=== PATIENT | male | born 1960 | race Two or more races ===

== ENCOUNTER 2016-06-28 10:24 | Inpatient (IN) | payer MEDICAID ==
[~2016-06-28] VITALS: Ht 172.7 cm; Wt 89.4 kg
[~2016-06-28 10:24] MED LIST: AMLO1CAP10 PO; ASPI81TA2 PO; ATOR80TA PO; CARV3.122 PO; CLOP75TA2 PO; FURO20TA4 PO; GEMF600T3 PO; GLIM4TAB2 PO; INSU3INS6 SUBCUT; [UNRECOGNIZED DRUG - CODE] PO
--- NOTE | 2016-06-28 10:24 | NUR ---
COUGH, CONGESTION, BODY ACHES AND CHILLS. NAD NOTED. RR EVEN AND UNLABORED. PT AAO X4, AMB WITH STEADY GAIT. VSS. PENDING MD [place].
[2016-06-28 10:54] LABS: BASOPHILS # (AUTO) 0.1 /CMM (0.0-0.2); BASOPHILS % (AUTO) 1.1 % (0.0-2.0); EOSINOPHILS # (AUTO) 0.2 /CMM (0.0-0.7); HEMATOCRIT 35 % (39-51); HEMOGLOBIN 12.2 g/dL (13.5-17.5); LYMPHOCYTES # (AUTO) 1.7 /CMM (0.8-4.8); LYMPHOCYTES % (AUTO) 21.9 % (20.0-44.0); MEAN CORPUSCULAR HEMOGLOBIN 31 PG (26.0-33.0); MEAN CORPUSCULAR HGB CONC 35 g/dl (31.0-36.0); MEAN CORPUSCULAR VOLUME 89 fL (80-96); MONOCYTES # (AUTO) 0.6 /CMM (0.1-1.30); MONOCYTES % (AUTO) 8.2 % (2.0-12.0); NEUTROPHILS % (AUTO) 65.8 % (43.0-81.0); PLATELET COUNT (AUTO) 453 /CMM (150-450); RDW COEFFICIENT OF VARIATION 12.3 (11.5-15.0); RED BLOOD CELL COUNT(AUTO) 3.99 MIL/uL (4.5-6.0); WHITE BLOOD COUNT (AUTO) 7.6 K/uL (4.3-11.0)
[2016-06-28] MEDS ORDERED: ONDANSETRON HCL/PF 4 MG/2 ML VIAL ONE (10:58)
[2016-06-28] MEDS ORDERED: NITROGLYCERIN PACKET 1 GM PACKET ONE (10:58)
[2016-06-28] MEDS ORDERED: MORPHINE SULFATE INJ 4 MG/ML DISP.SYRIN ONE (10:58)
[2016-06-28] MEDS ORDERED: MORPHINE SULFATE INJ 2 MG/ML DISP.SYRIN IV ONE (11:00)
[2016-06-28] MEDS ORDERED: NITROGLYCERIN PACKET 1 GM PACKET TD ONE (11:00)
[2016-06-28] MEDS ORDERED: ONDANSETRON HCL/PF 4 MG/2 ML VIAL IVP ONE (11:00)
[2016-06-28 11:11] LABS: TROPONIN I 0.034 ng/mL (0.00-0.056)
[2016-06-28 11:12] LABS: CALCIUM, SERUM 8.8 mg/dL (8.5-10.1); CREATININE 1.2 mg/dL (0.6-1.3); POTASSIUM 3.8 mmol/L (3.5-5.1)
--- NOTE | 2016-06-28 11:17 | NUR ---
CALLED NURSING SUP. FOR TELE BED
[2016-06-28 11:22] LABS: INR 0.96 (0.87-1.13); PROTHROMBIN TIME 10.3 SECS (9.5-12.7)
--- NOTE | 2016-06-28 11:45 | NUR ---
SERINA PAGED, DR.SAM Juarez CLOTH BOLT BANDER
[2016-06-28] MEDS ORDERED: INSU100V3 SQ (11:47)
--- NOTE | 2016-06-28 12:06 | NUR ---
REPORT GIVEN TO PHILLIP VERGARA FOR FIDELIA
--- NOTE | 2016-06-28 12:09 | NUR ---
SERINA PAGED, PLYCOR OPERATOR
--- NOTE | 2016-06-28 13:26 | NUR ---
IS CONSULTANT ADMISSION Received patient from E.R. Department via [facility] under the care of Dr. Rosen with admitting diagnosis of: Chest Pain, Patient is alert and oriented x4, denies pain or discomfort at this time, no sob noted, patient's skin is intact, needs attended and met, placed on telemonitor which shows Sinus Rhythm 76, call light placed within reach, will continue to monitor.
[2016-06-28] MEDS ORDERED: MAG HYDROX/AL HYDROX/SIMETH 30 ML UDC PO PRN (13:30)
[2016-06-28] MEDS ORDERED: ACETAMINOPHEN 325 MG TABLET PO PRN (13:30)
[2016-06-28] MEDS ORDERED: ONDANSETRON HCL/PF 4 MG/2 ML VIAL IVP PRN (13:30)
[2016-06-28] MEDS ORDERED: ZOLPIDEM TARTRATE 5 MG TABLET PO PRN (13:30)
[2016-06-28] MEDS ORDERED: Z GUARD REMEDY 2 OZ OINT TP PRN (13:30)
[2016-06-28] MEDS ORDERED: HYDROCODONE/APAP 5/325MG 1 EACH TABLET PO PRN (13:30)
[2016-06-28] MEDS ORDERED: MAGNESIUM HYDROXIDE 30 ML UDC PO PRN (13:30)
[2016-06-28 14:00] VITALS: BP 135/75
--- NOTE | 2016-06-28 14:10 | NUR ---
INTERACTIVE PROJECT MANAGER NOTES Patient in bed, fsbs checked with result of 332, informed Dr. Rosen and received new orders for sliding scale insulin. Patient is in no distress at this time. Will continue to monitor.
[2016-06-28] MEDS ORDERED: *INSULIN REGULAR(HUMULIN R)HUM 100 UNIT/ML VIAL SQ PRN (14:30)
[2016-06-28] MEDS ORDERED: DEXTROSE 50%-WATER 50 ML DISP.SYRIN IV PRN (14:30)
[2016-06-28] MEDS: BLOOD SUGAR DIAGNOSTIC 1 EACH STRIP VI SCH ×3 (15:00→21:35)
[2016-06-28] MEDS: INSULIN REGULAR, HUMAN 100 UNIT/ML 3 ML VIAL SQ PRN (15:03)
[2016-06-28 16:00] VITALS: BP 125/65
[2016-06-28] MEDS: CARVEDILOL 3.125 MG TABLET PO SCH (17:20)
[2016-06-28] MEDS: GEMFIBROZIL 600 MG TABLET PO SCH (17:20)
[2016-06-28] MEDS: INSULIN REGULAR, HUMAN 100 UNIT/ML 3 ML VIAL SQ SCH (17:28)
--- NOTE | 2016-06-28 17:28 | NUR ---
TRANSIT COACH OPERATOR NOTES PATIENT SEEN AND EXAMINED BY DR. SCHUMACHER, CLARIFIED INSULIN ADMINISTRATION FOR DINNER, PER MD, GIVE 30 UNITS OF INSULIN FIRST THEN RECHECK IN AN HOUR TO SEE IF PATIENT NEEDS MORE COVERAGE FROM MODERATE SLIDING SCALE.
--- NOTE | 2016-06-28 18:13 | NUR ---
LONG TERM CARE PHLEBOTOMIST NOTES PATIENT ALREADY HAD DINNER, RECHECK BS WITH RESULT OF 356, PATIENT REFUSED ANY INSULIN AT THIS TIME, PATIENT IS AWARE NEXT SCHEDULE ACCUCHECK IS AT BEDTIME, HE PREFERS TO RECHECK SUGAR THEN. PATIENT IS IN STABLE CONDITION, NO CHANGE IN LOC, FAMILY AT BEDSIDE, NO COMPLAINT OF CHEST PAIN, VITAL SIGNS STABLE, CALL LIGHT WITHIN REACH, WILL ENDORSE TO PRESSURE CONTROLLER FOR FIDELIA.
[2016-06-28] MEDS ORDERED: NICOTINE PATCH (21MG) 21 MG PATCH.TD24 TD SCH (19:30)
--- NOTE | 2016-06-28 19:35 | NUR ---
RN OPENING NOTES RECEIVED REPORT FROM URSULA ROWLAND. FOUND Pt AWAKE, SITTING IN CHAIR. VISITING AT BEDSIDE. NO S/S OF ACUTE DISTRESS OR SOB NOTED. Pt IS A/OX4. NO C/O PAIN AT THIS TIME. IV ACCESS ON RFA #18, SL. SAFETY MEASURES IN PLACE. BED LOW, LOCKED, HOB ELEVATED, SIDE RAILS UP, CALL LIGHT AND BEDSIDE TABLE WITHIN REACH. WILL CONTINUE TO MONITOR Pt THROUGHOUT THE NIGHT FOR SAFETY.
--- NOTE | 2016-06-28 21:15 | NUR ---
RN NOTES Pt C/O OF FEELING HIS BLOOD SUGAR LOW. CHECKED BG, IT WAS 52. GAVE OJ, APPLE SAUCE, AND SANDWICH TO EAT. WILL RECHECK BG IN 15MIN.
--- NOTE | 2016-06-28 21:30 | NUR ---
RN NOTES RECHECKED BLOOD SUGAR. BG AT 83. DID NOT ADMINISTER HIS PM AMARYL 4MG DUE TO HIS LOW BG. WILL RECHECK BG.
[2016-06-28] MEDS: GLIMEPIRIDE 4 MG TABLET PO SCH (21:38)
[2016-06-28] MEDS: NICOTINE PATCH (21MG) 21 MG PATCH.TD24 TD SCH (21:52)
[2016-06-28 22:00] VITALS: BP 135/72
--- NOTE | 2016-06-28 22:00 | NUR ---
RN NOTES RECHECKED BLOOD SUGAR. BG 149. Pt REFUSED INSULIN AT THIS TIME, AFRAID THAT HIS BG WILL DROP TOO LOW AGAIN IN THE AM. WILL CONTINUE TO MONITOR Pt's BG LEVELS.
--- NOTE | 2016-06-29 06:35 | NUR ---
RN NOTES ACCUCHECK BG 308. ADMINISTERED 12UN OF INSULIN PER SLIDING SCALE.
[2016-06-29] MEDS: BLOOD SUGAR DIAGNOSTIC 1 EACH STRIP VI SCH ×4 (06:40→21:30)
[2016-06-29] MEDS: INSULIN REGULAR, HUMAN 100 UNIT/ML 3 ML VIAL SQ PRN ×3 (06:42→16:48)
[2016-06-29 06:50] LABS: BASOPHILS % (AUTO) 0.5 % (0.0-2.0); EOSINOPHILS # (AUTO) 0.3 /CMM (0.0-0.7); EOSINOPHILS % (AUTO) 3.5 % (0.0-6.0); HEMATOCRIT 35 % (39-51); HEMOGLOBIN 12.1 g/dL (13.5-17.5); LYMPHOCYTES # (AUTO) 2.5 /CMM (0.8-4.8); LYMPHOCYTES % (AUTO) 30.7 % (20.0-44.0); MEAN CORPUSCULAR HEMOGLOBIN 31 PG (26.0-33.0); MEAN CORPUSCULAR HGB CONC 35 g/dl (31.0-36.0); MEAN CORPUSCULAR VOLUME 89 fL (80-96); MONOCYTES # (AUTO) 0.6 /CMM (0.1-1.30); MONOCYTES % (AUTO) 7.5 % (2.0-12.0); NEUTROPHILS # (AUTO) 4.6 /CMM (1.8-8.9); NEUTROPHILS % (AUTO) 57.8 % (43.0-81.0); PLATELET COUNT (AUTO) 462 /CMM (150-450); RDW COEFFICIENT OF VARIATION 12.9 (11.5-15.0); RED BLOOD CELL COUNT(AUTO) 3.92 MIL/uL (4.5-6.0)
--- NOTE | 2016-06-29 06:55 | NUR ---
RN CLOSING NOTES NO SIGNIFICANT CHANGES DURING THE NIGHT. NO S/S OF ACUTE DISTRESS OR SOB NOTED. SAFETY MEASURES IN PLACE. ALL NEEDS MET AND ATTENDED TO. TELE READING SR 77. WILL ENDORSE TO DAYSHIFT RN FOR Pt's FIDELIA.
[2016-06-29 07:05] LABS: CALCIUM, SERUM 8.3 mg/dL (8.5-10.1); CREATININE 1.2 mg/dL (0.6-1.3); MAGNESIUM 1.8 mg/dL (1.8-2.4); PHOSPHORUS 3.6 mg/dL (2.5-4.9); POTASSIUM 4.2 mmol/L (3.5-5.1)
--- NOTE | 2016-06-29 07:10 | NUR ---
SALES SERVICE TECHNICIAN INITIAL NOTES REPORT RECEIVED AT THE BEDSIDE. PATIENT IS SLEEPING. NO SOB OR DISTRESS NOTED AT THIS TIME. PATIENT DOES NOT APPEAR TO BE IN PAIN, NO FACIAL GRIMACE NOTED. HEART RATE SR AT 72. BED IN A LOW POSITION, CALL LIGHT WITHIN PATIENT REACH. WILL CONTINUE TO MONITOR.
[2016-06-29 08:00] VITALS: BP 134/69
[2016-06-29] MEDS: BENAZEPRIL HCL 20 MG TABLET PO SCH (08:13)
[2016-06-29] MEDS: CARVEDILOL 3.125 MG TABLET PO SCH ×3 (08:13→16:47)
[2016-06-29] MEDS: CLOPIDOGREL BISULFATE 75 MG TABLET PO SCH (08:14)
[2016-06-29] MEDS: AMLODIPINE BESYLATE 10 MG TABLET PO SCH (08:14)
[2016-06-29] MEDS: ASPIRIN 81 MG TAB.CHEW PO SCH (08:14)
[2016-06-29] MEDS: GEMFIBROZIL 600 MG TABLET PO SCH ×2 (08:14→16:47)
[2016-06-29] MEDS: INSULIN REGULAR, HUMAN 100 UNIT/ML 3 ML VIAL SQ SCH ×2 (08:15→16:48)
[2016-06-29] MEDS ORDERED: INSULIN DETEMIR 100 UNIT/ML CARTRIDGE SQ SCH ×2 (09:00→09:46)
[2016-06-29 09:56] LABS: TROPONIN I 0.036 ng/mL (0.00-0.056)
[2016-06-29 18:00] VITALS: BP 134/69
--- NOTE | 2016-06-29 19:18 | NUR ---
ARM REST BUILDER CLOSING NOTES NO SIGNIFICANT CHANGES IN PATIENT CONDITION THROUGHOUT THE SHIFT. NO SOB OR DISTRESS NOTED AT THIS TIME. PATIENT DENIES PAIN. HEART RATE SR AT 79. BED IN A LOW POSITION, CALL LIGHT WITHIN PATIENT REACH. WILL ENDORSE FOR FIDELIA.
--- NOTE | 2016-06-29 19:47 | NUR ---
RN OPENING NOTES RECEIVED REPORT FROM KASHIF RNCANDI. FOUND Pt AWAKE, RESTING IN BED. VISITING AT BEDSIDE. NO S/S OF ACUTE DISTRESS OR SOB NOTED. Pt IS A/OX4, VERBAL, ABLE TO MAKE NEEDS KNOWN. NO C/O PAIN AT THIS TIME. IV ACCESS ON RFA #18, SL. WILL BE NPO AT MD FOR STRESS TEST IN THE AM. SAFETY MEASURES IN PLACE. BED LOW, LOCKED, HOB ELEVATED, SIDE RAILS UP, CALL LIGHT AND BEDSIDE TABLE WITHIN REACH. WILL CONTINUE TO MONITOR Pt THROUGHOUT THE NIGHT FOR SAFETY.
[2016-06-29 20:00] VITALS: BP 148/88
[2016-06-29] MEDS: NICOTINE PATCH (21MG) 21 MG PATCH.TD24 TD SCH (20:58)
[2016-06-29] MEDS ORDERED: NICOTINE PATCH (14MG) 14 MG PATCH.TD24 TD SCH (21:00)
[2016-06-29] MEDS: GLIMEPIRIDE 4 MG TABLET PO SCH (21:01)
--- NOTE | 2016-06-29 21:28 | NUR ---
ACCMICHAEL BG 267. ONLY ADMINISTERED LEVEMIR 25UN. NO ADDITIONAL INSULIN COVERAGE GIVEN. WILL BE NPO AT OR FOR STRESS TEST IN AM. Addendum: 06/29/16 at 2130 by BEBO BELTRAN RN SNACKS PROVIDED AT BEDSIDE. INFORMED Pt HE MUST EAT HIS SNACKS BEFORE 12AM.
[2016-06-29 22:00] VITALS: BP 148/88
[2016-06-29] MEDS ORDERED: ATORVASTATIN 40 MG TABLET PO SCH (22:00)
[2016-06-30] VITALS: BP 137/77
[2016-06-30 04:00] VITALS: BP 133/65
[2016-06-30] MEDS: BLOOD SUGAR DIAGNOSTIC 1 EACH STRIP VI SCH ×2 (06:35→09:34)
--- NOTE | 2016-06-30 06:39 | NUR ---
RN NOTES BLOOD SUGAR 235. NO INSULIN COVERAGE GIVEN DUE TO NPO STATUS FOR STRESS TEST IN THE AM. WILL INFORM DAYSHIFT RN TO HOLD BREAKFAST TRAY SO THAT Pt CAN EAT AFTER HE RETURNS FROM HIS TEST.
--- NOTE | 2016-06-30 06:55 | NUR ---
RN CLOSING NOTES NO SIGNIFICANT CHANGES DURING THE NIGHT. NO S/S OF ACUTE DISTRESS OR SOB NOTED. SAFETY MEASURES IN PLACE. ALL NEEDS MET AND ATTENDED TO. Pt HAS BEEN NPO [place]CE [place] FOR STRESS TEST IN THE AM. WILL ENDORSE TO DAYSHIFT RN FOR Pt's FIDELIA.
--- NOTE | 2016-06-30 07:00 | NUR ---
TELE/RN AM NOTES RECEIVED PATIENT IN BED, AWAKE, ALERT, WITHOUT SOB, NO PAIN, RESTING COMFORTABLY. IV LINE RFA INTACT, PATENT. REMAINS NPO FOR UPCOMING CARDIAC STRESS TEST. NEEDS MET, WITH CALL LIGHT WITHIN EASY REACH, WILL CONTINUE TO MONITOR ACCORDINGLY
[2016-06-30 07:01] VITALS: BP 144/77
[2016-06-30 08:00] VITALS: BP 131/80
[2016-06-30] MEDS ORDERED: REGADENOSON 0.4 MG/5 ML DISP.SYRIN IVP ONE (08:00)
[2016-06-30] MEDS: INSULIN REGULAR, HUMAN 100 UNIT/ML 3 ML VIAL SQ SCH (09:38)
--- NOTE | 2016-06-30 09:40 | NUR ---
MS/RN NOTES PATIENT IS BACK FROM CARDIAC STRESS TEST, IN STABLE CONDITION, NO SOB, NO CHEST PAIN, PART ONE IS DONE, AWAITING FOR SECOND PART. BLOOD SUGAR CHECKED PRIOR BREAKFAST, 205, PATIENT REFUSED 30 UNIT REGULAR INSULIN, INSTEAD ASKED FOR 20 UNITS REGULAR INSULIN, MD AWARE. WILL CONTINUE TO MONITOR ACCORDINGLY
[2016-06-30] MEDS: GEMFIBROZIL 600 MG TABLET PO SCH (09:53)
[2016-06-30] MEDS: ASPIRIN 81 MG TAB.CHEW PO SCH (09:53)
[2016-06-30] MEDS: CLOPIDOGREL BISULFATE 75 MG TABLET PO SCH (09:53)
[2016-06-30] MEDS: CARVEDILOL 3.125 MG TABLET PO SCH (09:53)
[2016-06-30] MEDS: AMLODIPINE BESYLATE 10 MG TABLET PO SCH (09:54)
[2016-06-30] MEDS: BENAZEPRIL HCL 20 MG TABLET PO SCH (09:54)
[2016-06-30] MEDS: INSULIN REGULAR, HUMAN 100 UNIT/ML 3 ML VIAL SQ PRN (12:16)
[2016-06-30 16:00] VITALS: BP 126/79
--- NOTE | 2016-06-30 16:45 | NUR ---
MS/RN NOTES DISCHARGED PATIENT HOME WITH SPOUSE, IN STABLE CONDITION, WALKING, WITHOUT SOB, NO DISTRESS, DENIES CHEST PAIN, VITAL SIGNS B/P - 129/86, P-89, R-18, T-97.8, 02-99 % RA DISCHARGE CARE INSTRUCTIONS GIVEN, VERBALIZED UNDERSTANDING. ENCOURAGED TO F/U WITH PRIMARY PHYSICIAN WITHIN A WEEK. LEFT WITH DISCHARGE PAPERS AND ALL HIS BELONGINGS AND VALUABLES.
== END 2016-06-30 16:45 | disposition home or self-care (01) | DRG 198 ==
LOC: ER 10:25 → TELE 12:50 → MED 06-30 08:53
PROVIDERS: ADMIT Family Medicine; ATTEND Family Medicine
DX: I25.119 Atherosclerotic heart disease of native coronary artery with unspecified angina pectoris (principal); E10.65 Type 1 diabetes mellitus with hyperglycemia; I10 Essential (primary) hypertension; E78.5 Hyperlipidemia, unspecified; F17.210 Nicotine dependence, cigarettes, uncomplicated; D64.9 Anemia, unspecified; Z95.1 Presence of aortocoronary bypass graft; Z79.4 Long term (current) use of insulin; Z79.84 Long term (current) use of oral hypoglycemic drugs; Z83.3 Family history of diabetes mellitus; Z71.6 Tobacco abuse counseling
CPT/HCPCS: 36415; 71010-TC; 80048-TC; 80061-TC; 82728-TC; 82962-TC; 83540-TC; 83735-TC; 83880; 84100-TC; 84484-TC; 85025-TC; 85730-TC; 87081-TC; 93307-TC; A4606; A9502; J1815; J2270; J2405; J2785; Z7610

== ENCOUNTER 2023-08-14 00:05 | Inpatient (IN) | payer MEDICAID, OTHER ==
[~2023-08-14] VITALS: Ht 172.7 cm; Wt 69.9 kg
[~2023-08-14 00:05] MED LIST changes: -AMLO1CAP10 PO; +AMLO1CAP93 PO; +ASPI-1169 PO; -ASPI81TA2 PO; +CLOP75TA15 PO; -CLOP75TA2 PO; -FURO20TA4 PO; -GEMF600T3 PO; +GEMF600T90 PO; -GLIM4TAB2 PO; +GLIM4TAB37 PO; +INSU100V3 SQ; -[UNRECOGNIZED DRUG - CODE] PO
[2023-08-14] MEDS ORDERED: HYDROCODONE/APAP 5/325MG TABLET ONE (00:36)
[2023-08-14] MEDS: HYDROCODONE/APAP 5/325MG TABLET PO ONE (00:45)
[2023-08-14] MEDS ORDERED: MORPHINE SULFATE INJ 4 MG/ML DISP.SYRIN ONE (00:52)
[2023-08-14] MEDS ORDERED: ONDANSETRON HCL/PF 4 MG/2 ML VIAL ONE (00:52)
[2023-08-14] MEDS: ONDANSETRON HCL/PF 4 MG/2 ML VIAL IV ONE (01:00)
[2023-08-14] MEDS: MORPHINE SULFATE INJ 2 MG/ML DISP.SYRIN IV ONE (01:02)
[2023-08-14 01:17] LABS: BASOPHILS % (AUTO) 0.4 % (0.0-2.0); EOSINOPHILS # (AUTO) 0.1 K/uL (0.0-0.7); EOSINOPHILS % (AUTO) 1.8 % (0.0-6.0); HEMATOCRIT 48 % (39-51); HEMOGLOBIN 16.6 g/dL (13.5-17.5); LYMPHOCYTES # (AUTO) 1.2 K/uL (0.8-4.8); LYMPHOCYTES % (AUTO) 16.6 % (20.0-44.0); MEAN CORPUSCULAR HEMOGLOBIN 32 PG (26.0-33.0); MEAN CORPUSCULAR HGB CONC 35 g/dl (31.0-36.0); MEAN CORPUSCULAR VOLUME 91 fL (80-96); MONOCYTES # (AUTO) 0.3 K/uL (0.1-1.30); MONOCYTES % (AUTO) 4.3 % (2.0-12.0); NEUTROPHILS # (AUTO) 5.4 K/uL (1.8-8.9); NEUTROPHILS % (AUTO) 76.9 % (43.0-81.0); PLATELET COUNT (AUTO) 156 K/uL (150-450); RED BLOOD CELL COUNT(AUTO) 5.26 MIL/uL (4.5-6.0); RED CELL DISTRIBUTION WIDTH 14.3 % (11.5-15.0)
[2023-08-14 01:27] LABS: INR 1.05 (0.91-1.10); PARTIAL THROMBOPLASTIN TIME 30.6 SEC (24.3-34.3); PROTHROMBIN TIME 11.1 SECS (9.2-11.1)
[2023-08-14 01:30] LABS: CALCIUM, SERUM 7.6 mg/dL (8.5-10.1); CREATININE 1.7 mg/dL (0.6-1.3); POTASSIUM 3.5 mmol/L (3.5-5.1)
[2023-08-14] MEDS ORDERED: MAGNESIUM HYDROXIDE 30 ML UDC PO PRN (02:00)
[2023-08-14] MEDS ORDERED: ONDANSETRON HCL/PF 4 MG/2 ML VIAL IVP PRN (02:00)
[2023-08-14] MEDS ORDERED: DEXTROSE 50%-WATER 50 ML DISP.SYRIN IV PRN (02:00)
[2023-08-14] MEDS ORDERED: MAG HYDROX/AL HYDROX/SIMETH 30 ML UDC PO PRN (02:00)
[2023-08-14 03:00] VITALS: BP 141/69; TEMP 97.5; O2SAT 96
[2023-08-14 03:43] VITALS: BP 141/69; TEMP 97.5; O2SAT 96
[2023-08-14] MEDS: BLOOD SUGAR DIAGNOSTIC 1 EACH STRIP IN SCH (05:34)
[2023-08-14] MEDS: INSULIN REGULAR, HUMAN 100 UNIT/ML 3 ML VIAL SQ PRN (05:41)
[2023-08-14] MEDS: MORPHINE SULFATE INJ 4 MG/ML DISP.SYRIN IV PRN (05:48)
[2023-08-14] MEDS ORDERED: CARV6.252 PO (07:58)
[2023-08-14] MEDS ORDERED: SACU1TAB PO (07:58)
[2023-08-14] MEDS ORDERED: FURO80TA3 PO (07:58)
[2023-08-14] MEDS ORDERED: ERTU15TA PO (07:58)
[2023-08-14] MEDS ORDERED: ROSU40TA23 PO (07:58)
[2023-08-14 08:00] VITALS: BP 151/88; TEMP 98.1; O2SAT 95
[2023-08-14] MEDS: AMLODIPINE BESYLATE 10 MG TABLET PO SCH (09:31)
[2023-08-14] MEDS: GEMFIBROZIL 600 MG TABLET PO SCH (09:31)
[2023-08-14] MEDS: PANTOPRAZOLE 40 MG VIAL IV SCH (09:31)
[2023-08-14] MEDS: BENAZEPRIL HCL 20 MG TABLET PO SCH (09:32)
[2023-08-14] MEDS: CARVEDILOL 6.25 MG TABLET PO SCH (09:33)
[2023-08-14] MEDS ORDERED: CARVEDILOL 6.25 MG TABLET PO SCH (11:30)
[2023-08-14] MEDS: SACUBITRIL/VALSARTAN 1 EACH TABLET PO SCH (12:00)
[2023-08-14] MEDS ORDERED: SACUBITRIL/VALSARTAN 1 EACH TABLET PO SCH (12:00)
[2023-08-14] MEDS ORDERED: ATORVASTATIN 40 MG TABLET PO SCH (12:00)
[2023-08-14] MEDS: FUROSEMIDE 20 MG/2 ML VIAL IV ONE (12:58)
[2023-08-14] MEDS: EMPAGLIFLOZIN 25 MG TABLET PO SCH (13:00)
[2023-08-14 16:00] VITALS: BP 113/61; TEMP 98.6; O2SAT 95
[2023-08-14 18:39] LABS: APPEARANCE,URINE CLEAR (CLEAR); BILIRUBIN,URINE NEGATIVE (NEGATIVE); BLOOD, URINE NEGATIVE Ery/uL (NEGATIVE); COLOR,URINE YELLOW (YELLOW); KETONES,URINE TRACE mg/dL (NEGATIVE); LEUKOCYTE ESTERASE ,URINE NEGATIVE (NEGATIVE); NITRITE, URINE NEGATIVE (NEGATIVE); PH,URINE 5.5 (5.0-8.0); PROTEIN,URINE 2+ mg/dl (NEGATIVE); UGLUCOSE 3+ mg/dL (NEGATIVE); UROBILINOGEN,URINE 0.2 EU/dL (0.2)
[2023-08-14 18:47] LABS: ADD URINE CULTURE NO; BACTERIA,URINE RARE /HPF (None Seen); MUCUS,URINE Few /LPF (None Seen); RBC,URINE 0-2 /HPF (0-2); SQUAMOUS EPITHELIAL CELL,UR 0-2 /HPF (None Seen); WBC,URINE 0-2 /HPF (0-3)
[2023-08-14 18:54] LABS: EOSINOPHIL,URINE None Seen
[2023-08-14 18:59] LABS: CREATININE, URINE 89.4 MG/DL (30.0-125.0); URINE TOTAL PROTEIN 90.1 mg/dL (0-11.9)
[2023-08-14 20:00] VITALS: BP 106/57; TEMP 98.4; O2SAT 96
[2023-08-14] MEDS: ATORVASTATIN 40 MG TABLET PO SCH (21:22)
[2023-08-14 23:40] VITALS: O2SAT 96
[2023-08-15] VITALS (10 sets, daily range): BP systolic 106–141; BP diastolic 57–88; TEMP 97.5–99; O2SAT 94–99
[2023-08-15 06:44] LABS: BASOPHILS % (AUTO) 0.5 % (0.0-2.0); EOSINOPHILS # (AUTO) 0.2 K/uL (0.0-0.7); EOSINOPHILS % (AUTO) 2.4 % (0.0-6.0); HEMATOCRIT 41 % (39-51); HEMOGLOBIN 14.4 g/dL (13.5-17.5); LYMPHOCYTES # (AUTO) 0.9 K/uL (0.8-4.8); LYMPHOCYTES % (AUTO) 12.9 % (20.0-44.0); MEAN CORPUSCULAR HEMOGLOBIN 32 PG (26.0-33.0); MEAN CORPUSCULAR HGB CONC 35 g/dl (31.0-36.0); MEAN CORPUSCULAR VOLUME 91 fL (80-96); MONOCYTES # (AUTO) 0.4 K/uL (0.1-1.30); MONOCYTES % (AUTO) 6.7 % (2.0-12.0); NEUTROPHILS # (AUTO) 5.1 K/uL (1.8-8.9); NEUTROPHILS % (AUTO) 77.5 % (43.0-81.0); PLATELET COUNT (AUTO) 126 K/uL (150-450); WHITE BLOOD COUNT (AUTO) 6.6 K/uL (4.3-11.0)
[2023-08-15 07:02] LABS: ALBUMIN 3.1 g/dL (3.4-5.0); BILIRUBIN,TOTAL 1.6 mg/dL (0.2-1.0); CALCIUM, SERUM 8.9 mg/dL (8.5-10.1); CREATININE 1.8 mg/dL (0.6-1.3); MAGNESIUM 1.9 mg/dL (1.8-2.4); PHOSPHORUS 4.4 mg/dL (2.5-4.9); TOTAL PROTEIN, SERUM 6.3 g/dL (6.4-8.2)
[2023-08-15] MEDS ORDERED: ANESTHESIA TRAY IN PYXIS 1 EA TRAY MC ONE (07:46)
[2023-08-15] MEDS ORDERED: BUPIVACAINE 0.25% 75 MG/30 ML VIAL ONE (07:47)
[2023-08-15] MEDS ORDERED: POLYMYXIN B SULFATE 0 UNITS ONE (07:47)
[2023-08-15] MEDS ORDERED: FENTANYL PF 250MCG/5ML AMPUL ONE (07:59)
[2023-08-15] MEDS ORDERED: ROCURONIUM BROMIDE 50 MG/5 ML ONE (08:01)
[2023-08-15 09:41] LABS: HEMOGLOBIN 14.7 g/dL (13.5-17.5)
[2023-08-15] MEDS ORDERED: FENTANYL PF 100MCG/2ML AMPUL ONE (09:42)
[2023-08-15] MEDS: ACETAMINOPHEN 325 MG TABLET PO PRN (12:18)
[2023-08-15] MEDS: ANCEF 1 GM/50 ML D5W IV SCH (16:35)
[2023-08-16 05:42] VITALS: O2SAT 94
[2023-08-16 07:16] LABS: BASOPHILS % (AUTO) 0.6 % (0.0-2.0); EOSINOPHILS # (AUTO) 0.2 K/uL (0.0-0.7); EOSINOPHILS % (AUTO) 2.9 % (0.0-6.0); HEMATOCRIT 39 % (39-51); HEMOGLOBIN 13.7 g/dL (13.5-17.5); LYMPHOCYTES # (AUTO) 0.7 K/uL (0.8-4.8); LYMPHOCYTES % (AUTO) 11.8 % (20.0-44.0); MEAN CORPUSCULAR HEMOGLOBIN 32 PG (26.0-33.0); MEAN CORPUSCULAR HGB CONC 35 g/dl (31.0-36.0); MEAN CORPUSCULAR VOLUME 91 fL (80-96); MONOCYTES # (AUTO) 0.4 K/uL (0.1-1.30); MONOCYTES % (AUTO) 7.1 % (2.0-12.0); NEUTROPHILS # (AUTO) 4.8 K/uL (1.8-8.9); NEUTROPHILS % (AUTO) 77.6 % (43.0-81.0); PLATELET COUNT (AUTO) 120 K/uL (150-450); RED BLOOD CELL COUNT(AUTO) 4.32 MIL/uL (4.5-6.0); RED CELL DISTRIBUTION WIDTH 13.9 % (11.5-15.0); WHITE BLOOD COUNT (AUTO) 6.2 K/uL (4.3-11.0)
[2023-08-16 08:05] VITALS: BP 114/60; TEMP 98.4; O2SAT 97
[2023-08-16 08:11] LABS: PTH, INTACT 34 pg/mL (15-65)
[2023-08-16 08:17] LABS: CALCIUM, SERUM 8.2 mg/dL (8.5-10.1); CREATININE 2.1 mg/dL (0.6-1.3); MAGNESIUM 2.1 mg/dL (1.8-2.4); PHOSPHORUS 3.9 mg/dL (2.5-4.9); POTASSIUM 3.6 mmol/L (3.5-5.1)
[2023-08-16] MEDS: PANTOPRAZOLE 40 MG TABLET.DR PO SCH (08:43)
[2023-08-16 13:08] LABS: *SPE A/G RATIO 1.1 (0.7-1.7); *SPE ALBUMIN 3.1 g/dL (2.9-4.4); *SPE ALPHA-1-GLOBULIN 0.3 g/dL (0.0-0.4); *SPE ALPHA-2-GLOBULIN 0.6 g/dL (0.4-1.0); *SPE GLOBULIN, TOTAL 2.7 g/dL (2.2-3.9); *SPE M-SPIKE Not Observed g/dL (Not Observed); *SPE PROTEIN TOTAL 5.8 g/dL (6.0-8.5); *SPEGAMMA GLOBULIN 0.8 g/dL (0.4-1.8)
[2023-08-16 16:00] VITALS: BP 100/59; TEMP 98.6; O2SAT 98
[2023-08-16 20:00] VITALS: BP 99/59; TEMP 97.5; O2SAT 97
[2023-08-16 23:39] VITALS: BP 99/59; TEMP 97.5; O2SAT 97
[2023-08-17 06:56] LABS: BASOPHILS % (AUTO) 0.7 % (0.0-2.0); EOSINOPHILS # (AUTO) 0.2 K/uL (0.0-0.7); EOSINOPHILS % (AUTO) 2.6 % (0.0-6.0); HEMATOCRIT 38 % (39-51); HEMOGLOBIN 13.3 g/dL (13.5-17.5); LYMPHOCYTES # (AUTO) 0.8 K/uL (0.8-4.8); LYMPHOCYTES % (AUTO) 14.3 % (20.0-44.0); MEAN CORPUSCULAR HEMOGLOBIN 32 PG (26.0-33.0); MEAN CORPUSCULAR HGB CONC 35 g/dl (31.0-36.0); MEAN CORPUSCULAR VOLUME 90 fL (80-96); MONOCYTES # (AUTO) 0.5 K/uL (0.1-1.30); MONOCYTES % (AUTO) 7.7 % (2.0-12.0); NEUTROPHILS # (AUTO) 4.4 K/uL (1.8-8.9); NEUTROPHILS % (AUTO) 74.7 % (43.0-81.0); PLATELET COUNT (AUTO) 132 K/uL (150-450); RED BLOOD CELL COUNT(AUTO) 4.18 MIL/uL (4.5-6.0); RED CELL DISTRIBUTION WIDTH 14.4 % (11.5-15.0); WHITE BLOOD COUNT (AUTO) 5.9 K/uL (4.3-11.0)
[2023-08-17 07:15] LABS: CALCIUM, SERUM 8.2 mg/dL (8.5-10.1); MAGNESIUM 2.2 mg/dL (1.8-2.4); PHOSPHORUS 3.5 mg/dL (2.5-4.9); POTASSIUM 3.5 mmol/L (3.5-5.1)
[2023-08-17 10:38] VITALS: BP 91/50; TEMP 97.9; O2SAT 99
[2023-08-17 16:00] VITALS: BP 100/55; TEMP 98.8; O2SAT 97
[2023-08-17 21:39] VITALS: BP 114/57; TEMP 98.6; O2SAT 96
[2023-08-18 07:15] LABS: BASOPHILS % (AUTO) 0.6 % (0.0-2.0); EOSINOPHILS # (AUTO) 0.2 K/uL (0.0-0.7); EOSINOPHILS % (AUTO) 3.4 % (0.0-6.0); HEMATOCRIT 36 % (39-51); HEMOGLOBIN 12.8 g/dL (13.5-17.5); LYMPHOCYTES % (AUTO) 19.1 % (20.0-44.0); MEAN CORPUSCULAR HEMOGLOBIN 32 PG (26.0-33.0); MEAN CORPUSCULAR HGB CONC 35 g/dl (31.0-36.0); MEAN CORPUSCULAR VOLUME 90 fL (80-96); MONOCYTES # (AUTO) 0.5 K/uL (0.1-1.30); MONOCYTES % (AUTO) 9.9 % (2.0-12.0); NEUTROPHILS # (AUTO) 3.4 K/uL (1.8-8.9); PLATELET COUNT (AUTO) 157 K/uL (150-450); RED BLOOD CELL COUNT(AUTO) 4.05 MIL/uL (4.5-6.0); RED CELL DISTRIBUTION WIDTH 14.2 % (11.5-15.0); WHITE BLOOD COUNT (AUTO) 5.1 K/uL (4.3-11.0)
[2023-08-18 07:46] LABS: MAGNESIUM 2.3 mg/dL (1.8-2.4); PHOSPHORUS 3.7 mg/dL (2.5-4.9); POTASSIUM 3.8 mmol/L (3.5-5.1)
[2023-08-18 08:40] VITALS: BP 112/62; TEMP 98.1; O2SAT 98
[2023-08-18] MEDS: LIDOCAINE 5% (PATCH) 1 EA PATCH TP SCH (10:35)
[2023-08-18] MEDS: KETOROLAC TROMETHAMINE INJ 30 MG/ML VIAL IM PRN (10:35)
[2023-08-18] MEDS ORDERED: APIX2.5T PO (12:02)
[2023-08-18] MEDS ORDERED: LIDO30AD10 TP (12:02)
[2023-08-18 16:06] VITALS: BP 125/70; TEMP 98.1; O2SAT 97
[2023-08-18 16:13] VITALS: BP 125/70
[2023-08-18] MEDS: ACETAMINOPHEN 325 MG TABLET PO PRN (16:21)
== END 2023-08-18 19:45 | DRG 308 ==
LOC: ER 00:06 → MED 01:59
PROVIDERS: ADMIT Nurse Practitioner Acute Care; ATTEND Student in an Organized Health Care Education/Training Program
PROC: 0QS706Z Reposition Left Upper Femur with Intramedullary Internal Fixation Device, Open Approach (ICD-10-PCS; principal; 2023-08-15)
DX: S72.142A Displaced intertrochanteric fracture of left femur, initial encounter for closed fracture (principal); N17.0 Acute kidney failure with tubular necrosis; I50.42 Chronic combined systolic (congestive) and diastolic (congestive) heart failure; E87.1 Hypo-osmolality and hyponatremia; I13.0 Hypertensive heart and chronic kidney disease with heart failure and stage 1 through stage 4 chronic kidney disease, or unspecified chronic kidney disease; D69.6 Thrombocytopenia, unspecified; I42.9 Cardiomyopathy, unspecified; J90 Pleural effusion, not elsewhere classified; I25.5 Ischemic cardiomyopathy; W01.0XXA Fall on same level from slipping, tripping and stumbling without subsequent striking against object, initial encounter; I25.10 Atherosclerotic heart disease of native coronary artery without angina pectoris; N18.9 Chronic kidney disease, unspecified; Z95.1 Presence of aortocoronary bypass graft; Z98.890 Other specified postprocedural states; Z90.49 Acquired absence of other specified parts of digestive tract; E11.22 Type 2 diabetes mellitus with diabetic chronic kidney disease; Z79.4 Long term (current) use of insulin; Z79.84 Long term (current) use of oral hypoglycemic drugs; Z79.82 Long term (current) use of aspirin; Z79.02 Long term (current) use of antithrombotics/antiplatelets; Z79.899 Other long term (current) drug therapy; Z82.49 Family history of ischemic heart disease and other diseases of the circulatory system; Z83.3 Family history of diabetes mellitus; J42 Unspecified chronic bronchitis; F17.210 Nicotine dependence, cigarettes, uncomplicated; E78.5 Hyperlipidemia, unspecified
CPT/HCPCS: 36415; 71045-TC; 72192-TC; 73502; 76770-TC; 80048-TC; 80053-TC; 80061-TC; 81001; 82550-TC; 82570-TC; 82962-TC; 83735-TC; 83880; 83970; 84100-TC; 84155; 84165; 84300-TC; 85025-TC; 85027-TC; 85730-TC; 86850-TC; 93307-TC; 94760-TC; 94799-TC; 97110-TC; 97112-TC; 97116-TC; 97530-TC; A6209; A6253; C1713; C9113; G0378; J0461; J0690; J1815; J1885; J1940; J2270; J2405; J2704; J3010; J3490; J7060